=== PATIENT | female | born 1955 | race Caucasian/White ===

== ENCOUNTER 2019-05-16 13:35 | Emergency (ER) | payer OTHER ==
[2019-05-16] MEDS: ACETAMINOPHEN 325 MG TAB PO (14:18)
[2019-05-16] MEDS: ALBUTEROL 0.083% (NEB) 2.5 MG/3 ML AMP HHN (14:25)
[2019-05-16] MEDS: DEXAMETHASONE 4 MG TAB PO (14:32)
== END 2019-05-16 15:23 | disposition home or self-care (01) ==
LOC: FTE 13:35
DX: J06.9 Acute upper respiratory infection, unspecified (principal)
CPT/HCPCS: 71045; 94664; 99283-25